=== PATIENT | female | born 1975 | race Caucasian/White ===

== ENCOUNTER 2018-01-30 05:46 | Day surgery (SDC) | payer OTHER ==
[~2018-01-30 05:46] MED LIST: INTEGRA F CAPS1 EACH PO; NEURIN SL PO; [UNRECOGNIZED DRUG - OTHER]
== END 2018-01-30 14:05 | disposition home or self-care (01) ==
LOC: AMB-ENDOS 05:46
DX: C18.6 Malignant neoplasm of descending colon (principal); D12.4 Benign neoplasm of descending colon; D50.0 Iron deficiency anemia secondary to blood loss (chronic); K91.30 Postprocedural intestinal obstruction, unspecified as to partial versus complete; K64.1 Second degree hemorrhoids

== ENCOUNTER 2019-07-30 10:04 | Day surgery (SDC) | payer OTHER | END 2019-07-30 15:35 | disposition home or self-care (01) | LOC: AMB-ENDOS 10:04 | DX: D12.2 Benign neoplasm of ascending colon (principal); K64.1 Second degree hemorrhoids ==

== ENCOUNTER 2020-10-20 06:30 | Day surgery (SDC) | payer OTHER | END 2020-10-20 10:20 | disposition home or self-care (01) | LOC: AMB-ENDOS 06:30 → CIR.AMB 13:30 | PROVIDERS: ATTEND Colon & Rectal Surgery | DX: K62.89 Other specified diseases of anus and rectum (principal); K64.2 Third degree hemorrhoids; Z20.828 Contact with and (suspected) exposure to other viral communicable diseases ==

== ENCOUNTER 2022-02-06 05:41 | Day surgery (SDC) | payer OTHER ==
[~2022-02-06 05:41] MED LIST changes: +MEGESTROL ACETA40 MG PO
== END 2022-02-06 10:30 | disposition home or self-care (01) ==
LOC: CIR.AMB 05:41
PROVIDERS: ATTEND Colon & Rectal Surgery
DX: C18.6 Malignant neoplasm of descending colon (principal); D50.0 Iron deficiency anemia secondary to blood loss (chronic); Z86.16 Personal history of COVID-19